=== PATIENT | male | born 1995 | race American Indian/Alaskan Native ===

== ENCOUNTER 2019-08-20 19:02 | Emergency (ER) | payer SELFPAY ==
[2019-08-20 20:18] VITALS: BP 141/79
--- NOTE | 2019-08-20 20:21 | Event Note ---
ED Screening Note Date of service: 08/20/19 Time: 20:14 ED Screening Note: 24 y/o male comes in for paranoid thoughts. This initial assessment/diagnostic orders/clinical plan/treatment(s) is/are subject to change based on patients health status, clinical progression and re- assessment by fellow clinical providers in the ED. Further treatment and workup at subsequent clinical providers discretion. Patient/guardian urged not to elope from the ED as their condition may be serious if not clinically assessed and managed. Initial orders include:
--- NOTE | 2019-08-20 20:46 | Emergency Department Report ---
ED Psych HPI - General Chief Complaint: Psych Stated Complaint: MENTAL HEALTH ISSUE Time Seen by Provider: 08/20/19 20:14 Source: patient Mode of arrival: Ambulatory - History of Present Illness Initial Comments: Patient is a 24-year-old F [place] male who was brought in by his mother because she believes he is a narcissistic sociopath. Mother is not here at this time but the patient states that he has been having issues with his family since the age of 12. Patient states that they like to spread rumors about him and have caused him to lose several jobs and is living accommodation. Patient states he is 24 and would just like to be left alone by them. Patient denies any homicidal suicidal ideations. He states he does not have any auditory visual hallucinations. - Related Data Allergies Allergy/AdvReac Type Severity Reaction Status Date / Time No Known Allergies Allergy Verified 08/20/19 19:22 ED Review of Systems ROS: Stated complaint: MENTAL HEALTH ISSUE Other details as noted in HPI Comment: All other systems reviewed and negative ED Past Medical Hx - Past Medical History Previous Medical History?: No - Surgical History Past Surgical History?: No - Social History Smoking Status: Former Smoker Substance Use Type: None ED Physical Exam - General Limitations: No Limitations General appearance: alert, in no apparent distress - Head Head exam: Present: atraumatic, normocephalic - Eye Eye exam: Present: normal appearance - ENT ENT exam: Present: mucous membranes moist - Neck Neck exam: Present: normal inspection - Respiratory Respiratory exam: Present: normal lung sounds bilaterally. Absent: respiratory distress, wheezes, rales, rhonchi - Cardiovascular Cardiovascular Exam: Present: regular rate, normal rhythm. Absent: systolic murmur, diastolic murmur, rubs, gallop - GI/Abdominal GI/Abdominal exam: Present: soft, normal bowel sounds - Rectal Rectal exam: Present: deferred - Extremities Exam Extremities exam: Present: normal inspection - Back Exam Back exam: Present: normal inspection - Neurological Exam Neurological exam: Present: alert, oriented X3 - Psychiatric Psychiatric exam: Present: normal affect, normal mood - Skin Skin exam: Present: warm, dry, intact, normal color. Absent: rash ED Course Vital Signs 08/20/19 20:16 Temperature 98.7 F Pulse Rate 58 L Respiratory 18 Rate Blood Pressure 141/79 O2 Sat by Pulse 97 Oximetry ED Medical Decision Making - Medical Decision Making Patient indeed may be having some paranoid delusions however the patient is not having any complaints that warrant an acute mental health stabilization. He is not acting violent he states he is not wanting to cause harm to himself or others and is alert and oriented x3. Patient does speak quickly and has a pressured speech. Patient possibly has a undiagnosed diagnosis of bipolar disorder however the patient does not want to undergo any psychiatric evaluation at this time and again the patient is ANO x3 and calm and cooperative and is of age to make decisions for himself. Patient was given a list of homeless shelters and was he states his family would not let them back into the house and the patient will be discharged. Critical care attestation.: If time is entered above; I have spent that time in minutes in the direct care of this critically ill patient, excluding procedure time. ED Disposition Clinical Impression: Paranoia Disposition: Z07 MED SCREENING EXAM-LEFT Is pt being admited?: No Does the pt Need Aspirin: No Condition: Stable Referrals: [facility] [Outside] - 3-5 Days Time of Disposition: 20:45
[2019-08-20 20:50] LABS: Bilirubin,Urine NEG (Negative); Blood,Urine NEG (Negative); Color,Urine Yellow (Yellow); Mucus,Urine FEW /HPF; Protein,Urine <15 mg/dL mg/dL (Negative); Urobilinogen,Urine < 2.0 mg/dL (<2.0)
[2019-08-20 20:56] LABS: Amphetamine Screen,Urine PRESUMPTIVE NEGATIVE; Benzodiazepines Screen,Urine PRESUMPTIVE NEGATIVE; Cocaine Screen,Urine PRESUMPTIVE NEGATIVE; Methadone Screen,Urine PRESUMPTIVE NEGATIVE; Opiate Screen,Urine PRESUMPTIVE NEGATIVE
[2019-08-20 21:10] LABS: Cannabinoid Screen,Urine PRESUMPTIVE POSITIVE
== END 2019-08-20 20:45 | disposition left against medical advice (07) ==
LOC: ED 19:02
DX: F22 Delusional disorders (principal); Z87.891 Personal history of nicotine dependence
CPT/HCPCS: 80307; 81001; 87086